=== PATIENT | male | born 1990 | race Caucasian/White ===

== ENCOUNTER 2017-02-18 00:13 | Emergency (ER) | payer MEDICAID ==
[2017-02-18 00:21] VITALS: TEMP 98.8
[2017-02-18] MEDS ORDERED: IBUPROFEN 600 MG TAB PO ONE (00:54)
[2017-02-18] MEDS ORDERED: IBUPROFEN 200 MG TAB PO ONE (00:57)
[2017-02-18] MEDS ORDERED: HYDROCODONE/APAP 5/325 TAB PO ONE (01:23)
[2017-02-18] MEDS ORDERED: KETAMINE 500 MG/10 ML VIAL NASAL ONE (01:37)
[2017-02-18] MEDS ORDERED: HYDROmorphONE/DILAUDID 2 MG TAB PO ONE (03:39)
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
[2017-02-18 04:43] VITALS: BP 110/84; PULSE 61; RESP 16; O2SAT 96
== END 2017-02-18 04:42 | disposition home or self-care (01) ==
PROC: 0S9D30Z Drainage of Left Knee Joint with Drainage Device, Percutaneous Approach (ICD-10-PCS; principal; 2017-02-18)
DX: S82.142A Displaced bicondylar fracture of left tibia, initial encounter for closed fracture (principal); S80.812A Abrasion, left lower leg, initial encounter; M25.462 Effusion, left knee; F17.200 Nicotine dependence, unspecified, uncomplicated; V18.0XXA Pedal cycle driver injured in noncollision transport accident in nontraffic accident, initial encounter; Y92.830 Public park as the place of occurrence of the external cause; Y93.55 Activity, bike riding
CPT/HCPCS: L1830